=== PATIENT | female | born 1985 | race Caucasian/White ===

== ENCOUNTER 2024-08-09 15:29 | Emergency (ER) | payer SELFPAY ==
[2024-08-09 15:30] VITALS: BMI 19.5
--- NOTE | 2024-08-09 15:58 | PC.NURSE ---
called for pt from lobby/outside, no answer [phone]
--- NOTE | 2024-08-09 16:01 | PC.NURSE ---
CALLED FROM LOBBY AND NO ANSWER. nOT FOUND INSIDE THE E.D. OR OUTSIDE
--- NOTE | 2024-08-09 16:12 | PC.NURSE ---
calledf for pt from lobby/outside, no answerx3 @[phone]
== END 2024-08-09 16:14 | disposition left against medical advice (07) ==
LOC: SERX 16:19
PROVIDERS: Emergency Provider Emergency Medicine
DX: Z53.21 Procedure and treatment not carried out due to patient leaving prior to being seen by health care provider (principal)